=== PATIENT | male | born 1985 | race African-American/Black ===

== ENCOUNTER → 2019-06-20 | Outpatient (CLI) | payer OTHER ==
[~2019-06-20] VITALS: Ht 167.6 cm; Wt 76.2 kg
== END ==
LOC: SUN.CLI 09:01
DX: Z76.89 Persons encountering health services in other specified circumstances (principal); E66.3 Overweight; Z68.27 Body mass index [BMI] 27.0-27.9, adult; Z71.3 Dietary counseling and surveillance

== ENCOUNTER 2020-02-23 02:50 | Emergency (ER) | payer OTHER ==
[~2020-02-23] VITALS: Ht 167.6 cm; Wt 72.7 kg
[2020-02-23 02:54] VITALS: BP 141/94; TEMP 97.5
[2020-02-23 04:00] VITALS: PULSE 71
== END 2020-02-23 04:00 | disposition home or self-care (01) ==
LOC: COL.ER 02:50
DX: H91.8X3 Other specified hearing loss, bilateral (principal)